=== PATIENT | female | born 1955 | race Hispanic/Latino ===

== ENCOUNTER 2017-10-10 14:58 | Outpatient (CLI) | payer BC | END 2017-10-10 14:59 | disposition home or self-care (01) | LOC: BICMAMMO 14:58 | PROVIDERS: ATTEND Physician Assistant Medical | DX: Z13.820 Encounter for screening for osteoporosis (principal); M85.88 Other specified disorders of bone density and structure, other site | CPT/HCPCS: 77080 ==

== ENCOUNTER 2019-01-24 10:33 | Outpatient (CLI) | payer BC ==
--- NOTE | 2019-01-24 11:23 | ULT ---
ULTRASOUND ABDOMEN LIMITED: (RIGHT UPPER QUADRANT) DATE: 01/24/2019. HISTORY: A 63-year-old female with epigastric pain. FINDINGS: Gallbladder: Almost entire gallbladder is obscured by strong acoustic shadowing. This most likely re presents gallbladder contracted around a large number of densely packed gallstones. The other possib ility is porcelain gallbladder. One of the images suggests the former. Porcelain gallbladder can be ruled in or rule out with CT of abdomen. Common duct: 5 mm. Liver: Diffusely slightly increased echogenicity, which could be normal, or could represent fatty semaj er. Pancreas: Mostly obscured by acoustic shadowing from overlying bowel gas. Right kidney: No hydronephrosis. IMPRESSION: Either the gallbladder is contracted around a large number of gallstones (cholelithiasis), or there i s porcelain gallbladder. The former is favored. OJSE Balderas POS: CET
== END 2019-01-24 10:34 | disposition home or self-care (01) ==
LOC: BICULT 10:33
PROVIDERS: ATTEND Family Medicine
DX: R10.13 Epigastric pain (principal); K80.20 Calculus of gallbladder without cholecystitis without obstruction
CPT/HCPCS: 76705

== ENCOUNTER 2019-03-05 13:12 | Outpatient (CLI) | payer BC ==
[2019-03-05 14:25] LABS: #Basophils 0.1 thou/uL (0.0-0.2); #Eosinphils 0.1 thou/uL (0.0-0.7); #Lymphocytes 2.4 thou/uL (1.20-3.40); #Monocytes 0.5 thou/uL (0.11-0.59); #Neutrophils 4.1 thou/uL (1.40-6.50); %Basophils 0.7 % (0.0-1.0); %Eosinophils 1.8 % (0.0-10.0); %Lymphocytes 34.1 % (21.0-51.0); %Monocytes 6.3 % (0.0-10.0); %Neutrophils 57.1 % (42.0-75.0); Mean Corpuscular HGB CONC 33.1 g/dL (32.0-36.0); Mean Corpuscular Hemoglobin 30.2 pg (27.0-31.0); Mean Corpuscular Volume 91.1 fL (78.0-98.0); Mean Platelet Volume 10.1 fL (7.4-10.4); Platelet Count 219 thou/uL (130-400); RBC Distribution Width 11.1 % (11.5-14.5); Red Blood Cell (RBC) Count 4.64 mill/uL (4.20-5.40); White Blood Cell (WBC) Count 7.2 thou/uL (4.8-10.8)
[2019-03-05 14:49] LABS: ALT (SGPT) 10 U/L (8-55); AST (SGOT) 16 U/L (5-34); Albumin 4.1 g/dL (3.4-4.8); Alkaline Phosphatase 66 U/L (40-110); Anion Gap 10 mmol/L (10-20); BUN (Urea Nitrogen) 9 mg/dL (9.8-20.1); Bilirubin, Direct 0.1 mg/dL (0.1-0.3); Bilirubin, Total 0.4 mg/dL (0.2-1.2); Calc. Creatinine Clearance 0 mL/min (70-130); Calcium 9.4 mg/dL (7.8-10.44); Carbon Dioxide 27 mmol/L (23-31); Chloride 105 mmol/L (98-107); Estimated GFR-MDRD 82; Globulin 3.3 g/dL (2.4-3.5); Glucose 156 mg/dL (80-115); Potassium 3.9 mmol/L (3.5-5.1); Protein, Total 7.4 g/dL (6.0-8.3); Sodium 138 mmol/L (136-145)
== END 2019-03-05 13:13 | disposition home or self-care (01) ==
LOC: LABBT 13:12
PROVIDERS: ATTEND Preventive Medicine Preventive Medicine/Occupational Environmental Medicine
DX: Z01.818 Encounter for other preprocedural examination (principal); K80.20 Calculus of gallbladder without cholecystitis without obstruction
CPT/HCPCS: 80053; 80076; 85025; 93005; 93010

== ENCOUNTER 2019-03-22 06:31 | Day surgery (SDC) | payer BC ==
[2019-03-05 13:25] VITALS: BMI 32.7
[2019-03-22] MEDS ORDERED: ceFOXitin 2 GM/50 ML Duplex BAG ONE (07:36)
[2019-03-22] MEDS ORDERED: Fentanyl 100 MCG/2 ML VIAL ONE ×2 (08:50→10:45)
[2019-03-22] MEDS ORDERED: Bupivacaine 0.25% HCL 30 ML VIAL ONE (09:48)
[2019-03-22] MEDS ORDERED: Lidocaine 1% w/Epinephrine 1:100K 20 ML VIAL ONE (09:48)
[2019-03-22] MEDS ORDERED: SUGAMMADEX SODIUM 200 MG/2 ML VIAL ONE (10:23)
[2019-03-22] MEDS ORDERED: PROPOFOL 200 MG/20 ML VIAL ONE (11:15)
[2019-03-22] MEDS ORDERED: Rocuronium Bromide 10 MG/ML (10ML VIAL) ONE (11:15)
[2019-03-22] MEDS ORDERED: Lidocaine 1% PF 5 ML VIAL ONE (11:15)
--- NOTE | 2019-03-22 12:50 | OP ---
DATE OF PROCEDURE: 03/22/2019 PREOPERATIVE DIAGNOSIS: Symptomatic cholelithiasis. PROCEDURE PERFORMED: Laparoscopic cholecystectomy. INDICATIONS: A 63-year-old female, who has been having episodic right upper quadrant pain. Ultrasound showed cholelithiasis. FINDINGS: She had a very large gallbladder filled with multiple large stones. The cystic duct was small caliber. DESCRIPTION OF PROCEDURE: After informed consent was obtained, the patient was taken to the operating room, given general endotracheal anesthesia, placed in the supine position. Abdomen was prepped and draped in usual fashion. Local anesthesia was infiltrated subcutaneously and deep and a supraumbilical incision was performed, subcu divided sharply. The fascia was grasped with 2 stay sutures of 0 Vicryl placed through each side of midline. Midline was incised. Digital palpation revealed no local adhesions. A blunt 12-mm trocar inserted. Pneumoperitoneum was created to a pressure of 15 mmHg. A 0-degree laparoscope inserted under direct vision. Three 5-mm ports were placed subcostally. The gallbladder was grasped and advanced superiorly. The peritoneum was dissected distally to expose the cystic duct and artery in critical view. The duct and artery were triply ligated with hemoclips and divided. The gallbladder was removed from its fossa utilizing electrocautery, removed from the abdomen through the umbilical port. Hemostasis was assured. Trocars and retractors removed. The fascia was closed with interrupted 2-0 Vicryl sutures. Skin closed with interrupted 4-0 Rapide. Dermabond applied. The patient tolerated the procedure well, transferred to Recovery in good condition. Sponge and needle count verified correct x2. Job ID: [id number]
== END 2019-03-22 14:12 | disposition home or self-care (01) ==
LOC: SDC 06:31
PROVIDERS: ATTEND Surgery
PROC: 0FT44ZZ Resection of Gallbladder, Percutaneous Endoscopic Approach (ICD-10-PCS; principal; 2019-03-22)
DX: K80.10 Calculus of gallbladder with chronic cholecystitis without obstruction (principal); I10 Essential (primary) hypertension; E11.9 Type 2 diabetes mellitus without complications; K21.9 Gastro-esophageal reflux disease without esophagitis; Z79.84 Long term (current) use of oral hypoglycemic drugs; Z79.899 Other long term (current) drug therapy
CPT/HCPCS: 88304; J0694; J2001; J2704; J3010; S0020

== ENCOUNTER 2019-10-08 09:58 | Outpatient (CLI) | payer MEDICARE, BC ==
--- NOTE | 2019-10-09 07:29 | RAD ---
EXAM: Chest PA and lateral: HISTORY: Right mid lower back pain. Posterior rib pain. COMPARISON: None FINDINGS: Heart: Normal cardiac silhouette Aorta: Unremarkable Pulmonary vessels: Normal Costophrenic angles: Costophrenic angles are clear. Lungs: No consolidation or masses. Pneumothorax: No pneumothorax Osseous structures: No osseous abnormalities IMPRESSION: No acute cardiopulmonary process.
--- NOTE | 2019-10-09 07:34 | RAD ---
Exam: 3 views thoracic spine HISTORY: Dorsalgia. FINDINGS: AP, lateral and swimmer's view of the thoracic spine demonstrate preserved vertebral body h eights. No fractures or malalignment. Mild loss of disc space height and osteophyte formation the mid thoracic spine. IMPRESSION: No radiographic evidence of fracture or malalignment.
== END 2019-10-08 09:59 | disposition home or self-care (01) ==
LOC: BICRAD 09:58
PROVIDERS: ATTEND Family Medicine
DX: M54.6 Pain in thoracic spine (principal); R07.89 Other chest pain
CPT/HCPCS: 71046; 72072

== ENCOUNTER 2019-11-13 14:24 | Outpatient (CLI) | payer MEDICARE, BC ==
[2019-11-13 14:53] LABS: Estimated GFR-MDRD - POC Greater than 90
--- NOTE | 2019-11-13 15:11 | CT ---
CT abdomen with IV and oral contrast HISTORY: Upper abdomen pain. FINDINGS: The lung bases are clear. Postoperative changes of the stomach and GE junction with small hiatal hernia apparent. The gallbladd er surgically absent. The liver, spleen, kidneys, adrenal glands, and pancreas otherwise have a normal CT appearance. There is calcification throughout the arterial structures. Degenerative changes lumbar spine. The pelvis was not imaged. IMPRESSION : No abnormalities are demonstrated to explain the patient's symptoms. Small hiatal hernia. Appearance of prior bariatric surgery. Atherosclerosis.
[2019-11-13] MEDS ORDERED: Iopamidol 370 76% 100 ML VIAL ONE (15:24)
== END 2019-11-13 14:25 | disposition home or self-care (01) ==
LOC: BICCT 14:24
PROVIDERS: ATTEND Family Medicine
DX: K43.2 Incisional hernia without obstruction or gangrene (principal); K44.9 Diaphragmatic hernia without obstruction or gangrene; I70.90 Unspecified atherosclerosis; Z98.84 Bariatric surgery status
CPT/HCPCS: 74160; 82565; Q9967

== ENCOUNTER 2020-02-28 14:15 | Outpatient (CLI) | payer MEDICARE, BC ==
--- NOTE | 2020-02-28 15:20 | BD ---
Exam: DEXA Bone Density 02/28/20 INDICATION: Asymptomatic menopause, osteoporosis screening. FINDINGS: Lumbar Spine: BMD (g/cm2) T-SCORE Z-SCORE L1 0.864 -1.1 0.4 L2 0.915 -1.0 0.7 L3 0.869 -2.0 -0.1 L4 0.855 -1.9 0.8 L1-L4 0.874 -1.6 0.2 Left Femoral Neck: 0.674 -1.6 0.0 Left Total Femur: 1.005 0.5 1.8 Impression: Based on WHO criteria, patient's bone mineral density is osteopenic. The patient is at moderate risk for fracture. POS: BH
== END 2020-02-28 14:16 | disposition home or self-care (01) ==
LOC: BICMAMMO 14:15
PROVIDERS: ATTEND Family Medicine
DX: Z00.00 Encounter for general adult medical examination without abnormal findings (principal); Z13.820 Encounter for screening for osteoporosis; M85.89 Other specified disorders of bone density and structure, multiple sites; Z78.0 Asymptomatic menopausal state
CPT/HCPCS: 77080

== ENCOUNTER 2021-02-09 08:16 | Outpatient (CLI) | payer MEDICARE, BC | END 2021-02-09 08:17 | disposition home or self-care (01) | LOC: BICMAMMO 08:16 | PROVIDERS: ATTEND Family Medicine | DX: Z12.31 Encounter for screening mammogram for malignant neoplasm of breast (principal); Z80.3 Family history of malignant neoplasm of breast; Z91.89 Other specified personal risk factors, not elsewhere classified | CPT/HCPCS: 77063; 77067 ==

== ENCOUNTER 2021-03-25 15:56 | Outpatient (CLI) | payer MEDICARE, BC ==
[2021-03-25 17:22] LABS: #Eosinphils 0.1 10x3/uL (0.0-0.5); #Monocytes 0.4 10x3/uL (0.0-1.1); #Neutrophils 3.5 10x3/uL (1.5-8.4); %Basophils 0.7 % (0.0-2.0); %Lymphocytes 33.7 % (18.0-47.0); %Monocytes 5.9 % (0.0-10.0); %Neutrophils 57.5 % (40.0-75.0); Hemoglobin 12.9 g/dL (12.0-15.5); Mean Corpuscular HGB CONC 31.5 g/dL (32.0-36.0); Mean Corpuscular Hemoglobin 28.7 pg (27.0-33.0); Mean Corpuscular Volume 91.1 fl (81.6-98.3); Mean Platelet Volume 11.8 fl (7.4-10.4); Platelet Count 264 10x3/uL (150-450); RBC Distribution Width 13.1 % (11.5-14.5); Red Blood Cell (RBC) Count 4.49 10x6/uL (3.90-5.03); White Blood Cell (WBC) Count 6.1 10x3/uL (3.5-10.5)
[2021-03-25 17:28] LABS: ALT (SGPT) 11 U/L (8-55); AST (SGOT) 18 U/L (5-34); Alkaline Phosphatase 65 U/L (40-110); Anion Gap 12 mmol/L (10-20); BUN (Urea Nitrogen) 10 mg/dL (9.8-20.1); Bilirubin, Total 0.2 mg/dL (0.2-1.2); Calc. Creatinine Clearance 0 mL/min (70-130); Calcium 9.5 mg/dL (7.8-10.44); Carbon Dioxide 28 mmol/L (23-31); Chloride 106 mmol/L (98-107); Globulin 3.3 g/dL (2.4-3.5); Glucose 140 mg/dL (80-115); Potassium 4.1 mmol/L (3.5-5.1); Protein, Total 7.3 g/dL (5.8-8.1); Sodium 142 mmol/L (136-145)
[2021-03-26 11:22] LABS: SARS-CoV-2 PCR by NAA Not Detected (NotDetected)
== END 2021-03-25 15:57 | disposition home or self-care (01) ==
LOC: LABBT 15:56
PROVIDERS: ATTEND Internal Medicine Cardiovascular Disease
DX: Z01.812 Encounter for preprocedural laboratory examination (principal); Z20.822 Contact with and (suspected) exposure to COVID-19
CPT/HCPCS: 80053; 85025; U0003; U0005

== ENCOUNTER 2021-03-29 06:56 | Day surgery (SDC) | payer MEDICARE, BC ==
[2021-03-26 09:50] VITALS: BMI 30.4
[2021-03-29 08:22] LABS: Cardiac Risk 2.4 (Less than 4.5)
[2021-03-29] MEDS ORDERED: Fentanyl 100 MCG/2 ML VIAL ONE (09:54)
[2021-03-29] MEDS ORDERED: Midazolam HCl 2 mg/2 ml Vial ONE (09:55)
[2021-03-29] MEDS ORDERED: Iopamidol 370 76% 100 ML VIAL ONE (11:56)
== END 2021-03-29 13:08 | disposition home or self-care (01) ==
LOC: CCL 06:56
PROVIDERS: ATTEND Internal Medicine Cardiovascular Disease
PROC: 4A023N7 Measurement of Cardiac Sampling and Pressure, Left Heart, Percutaneous Approach (ICD-10-PCS; principal; 2021-03-29)
PROC: B2111ZZ Fluoroscopy of Multiple Coronary Arteries using Low Osmolar Contrast (ICD-10-PCS; 2021-03-29)
DX: R94.31 Abnormal electrocardiogram [ECG] [EKG] (principal); I25.10 Atherosclerotic heart disease of native coronary artery without angina pectoris; I10 Essential (primary) hypertension; E11.9 Type 2 diabetes mellitus without complications; K21.9 Gastro-esophageal reflux disease without esophagitis; M81.0 Age-related osteoporosis without current pathological fracture; Z86.16 Personal history of COVID-19; Z79.810 Long term (current) use of selective estrogen receptor modulators (SERMs); E55.9 Vitamin D deficiency, unspecified; E66.01 Morbid (severe) obesity due to excess calories; Z68.30 Body mass index [BMI] 30.0-30.9, adult; Z79.84 Long term (current) use of oral hypoglycemic drugs; Z79.899 Other long term (current) drug therapy; Z98.84 Bariatric surgery status
CPT/HCPCS: 80061; 93458; 99152; J2250; J3010; Q9967

== ENCOUNTER 2021-04-05 07:53 | Outpatient (CLI) | payer MEDICARE, BC ==
[2021-04-05 09:20] LABS: Hemoglobin 12.8 g/dL (12.0-15.5); Mean Corpuscular HGB CONC 31.6 g/dL (32.0-36.0); Mean Corpuscular Hemoglobin 28.4 pg (27.0-33.0); Mean Corpuscular Volume 89.8 fl (81.6-98.3); Mean Platelet Volume 11.4 fl (7.4-10.4); Platelet Count 239 10x3/uL (150-450); RBC Distribution Width 13.1 % (11.5-14.5); Red Blood Cell (RBC) Count 4.51 10x6/uL (3.90-5.03); White Blood Cell (WBC) Count 5.6 10x3/uL (3.5-10.5)
[2021-04-05 09:33] LABS: Anion Gap 9 mmol/L (10-20); BUN (Urea Nitrogen) 7 mg/dL (9.8-20.1); Calc. Creatinine Clearance 0 mL/min (70-130); Calcium 9.1 mg/dL (7.8-10.44); Carbon Dioxide 29 mmol/L (23-31); Chloride 107 mmol/L (98-107); Glucose 88 mg/dL (80-115); Potassium 4.4 mmol/L (3.5-5.1); Sodium 141 mmol/L (136-145)
[2021-04-05 17:41] LABS: SARS-CoV-2 PCR by NAA Not Detected (NotDetected)
== END 2021-04-05 07:54 | disposition home or self-care (01) ==
LOC: LABBT 07:53
PROVIDERS: ATTEND Thoracic Surgery (Cardiothoracic Vascular Surgery)
DX: Z01.812 Encounter for preprocedural laboratory examination (principal); Z20.822 Contact with and (suspected) exposure to COVID-19
CPT/HCPCS: 80048; 85027; 86850; 86900; 86901; U0003; U0005

== ENCOUNTER 2021-04-05 09:45 | Inpatient (IN) | payer MEDICARE, BC ==
[2021-04-05 09:20] LABS: Hemoglobin 12.8 g/dL (12.0-15.5); Mean Corpuscular HGB CONC 31.6 g/dL (32.0-36.0); Mean Corpuscular Hemoglobin 28.4 pg (27.0-33.0); Mean Corpuscular Volume 89.8 fl (81.6-98.3); Mean Platelet Volume 11.4 fl (7.4-10.4); Platelet Count 239 10x3/uL (150-450); RBC Distribution Width 13.1 % (11.5-14.5); Red Blood Cell (RBC) Count 4.51 10x6/uL (3.90-5.03); White Blood Cell (WBC) Count 5.6 10x3/uL (3.5-10.5)
[2021-04-05 09:33] LABS: Anion Gap 9 mmol/L (10-20); BUN (Urea Nitrogen) 7 mg/dL (9.8-20.1); Calc. Creatinine Clearance 0 mL/min (70-130); Calcium 9.1 mg/dL (7.8-10.44); Carbon Dioxide 29 mmol/L (23-31); Chloride 107 mmol/L (98-107); Glucose 88 mg/dL (80-115); Potassium 4.4 mmol/L (3.5-5.1); Sodium 141 mmol/L (136-145)
[2021-04-06 10:57] VITALS: BMI 30.2
[2021-04-08] MEDS ORDERED: ceFAZolin 2 GM/DEX 5% 100 ML BAG ONE (06:14)
[2021-04-08] MEDS ORDERED: Albumin 5% 0 ML ONE (06:21)
[2021-04-08] MEDS ORDERED: Sodium Chloride 0.9% 30 ML ONE (06:56)
[2021-04-08] MEDS ORDERED: Midazolam HCl 5 mg/5 ml Vial ONE (06:58)
[2021-04-08] MEDS ORDERED: Fentanyl 250 MCG/5 ML VIAL ONE (06:58)
[2021-04-08] MEDS ORDERED: Dexmedetomidine 200 MCG/2 ML VIAL ONE ×2 (06:58→07:06)
[2021-04-08] MEDS ORDERED: Heparin 10,000 UNITS/1 ML VIAL 30,000 UNITS in Sodium Chloride 0.9% 1,000 ML FS SCH (07:00)
[2021-04-08] MEDS ORDERED: Midazolam HCl 2 mg/2 ml Vial ONE (07:20)
[2021-04-08] MEDS ORDERED: Vecuronium 10 MG VIAL ONE (07:50)
[2021-04-08] MEDS ORDERED: Sodium Bicarb 50 MEQ/50 ML Abboject 8.4% SYRINGE ONE (07:50)
[2021-04-08] MEDS ORDERED: Dexamethasone 20 MG/5 ML VIAL ONE (07:50)
[2021-04-08] MEDS ORDERED: Protamine Sulfate 250 MG/25 ML VIAL ONE (07:50)
[2021-04-08] MEDS ORDERED: Heparin 5,000 UNITS/ML VIAL ONE (07:50)
[2021-04-08] MEDS ORDERED: Calcium Chloride 1 GM/10 ML Abboject SYRINGE ONE (07:50)
[2021-04-08] MEDS ORDERED: Thrombin 5000 UNITS/5 ML VIAL ONE (07:50)
[2021-04-08] MEDS ORDERED: Lidocaine 1% PF 5 ML VIAL ONE (07:50)
[2021-04-08] MEDS ORDERED: Glycopyrrolate 0.2 MG/ML 5 ML SYRINGE ONE (07:50)
[2021-04-08] MEDS ORDERED: Mannitol 12.5 GM/50 ML ONE (07:50)
[2021-04-08] MEDS ORDERED: Potassium Chloride 60 MEQ/30 ML VIAL ONE (07:50)
[2021-04-08] MEDS ORDERED: Nitroglycerin 50 MG/250 ML BOT ONE (07:50)
[2021-04-08] MEDS ORDERED: Papaverine 60 MG/2 ML VIAL ONE (07:50)
[2021-04-08] MEDS ORDERED: Cardioplegic Soln 1,000 ML BAG ONE (07:50)
[2021-04-08] MEDS ORDERED: PROPOFOL 200 MG/20 ML VIAL ONE (07:50)
[2021-04-08] MEDS ORDERED: Ondansetron PF 4 MG/2 ML Vial ONE (07:50)
[2021-04-08] MEDS ORDERED: Heparin 30,000 units/30 ml VIAL ONE (07:50)
[2021-04-08] MEDS ORDERED: Aminocaproic Acid 5 GM/20 ML VIAL ONE (07:50)
[2021-04-08] MEDS ORDERED: Magnesium Sulfate 1 GM/2 ML VIAL ONE (07:50)
[2021-04-08] MEDS ORDERED: Lidocaine 2% PF 100 mg/5 ml Syringe ONE (07:50)
[2021-04-08] MEDS ORDERED: Norepinephrine 4 MG/4 ML VIAL ONE (07:50)
[2021-04-08] MEDS ORDERED: PHENYLEPHRINE-NS 100 MCG/ML 10 ML SYRINGE ONE (09:56)
[2021-04-08] MEDS ORDERED: Insulin Regular 300 UNITS/3 ML VIAL ONE (10:02)
[2021-04-08] MEDS ORDERED: Hetastarch 6% 500 ML 500 ML IVPB PRN (11:41)
[2021-04-08] MEDS ORDERED: Guaifenesin DM 100-10/5 ML UDCUP PO PRN (11:41)
[2021-04-08] MEDS ORDERED: niCARdipine 25 MG in Sodium Chloride 0.9% 250 ML 240 ML IVPB PRN (11:41)
[2021-04-08] MEDS ORDERED: Mag-Al 1200 mg/1200 mg/30 ML UDCUP PO PRN (11:41)
[2021-04-08] MEDS ORDERED: Ondansetron PF 4 MG/2 ML Vial IVP PRN (11:41)
[2021-04-08] MEDS ORDERED: Norepinephrine 8 MG/0.9% NS 250 ML IVPB PRN (11:41)
[2021-04-08] MEDS ORDERED: Post-Op Insulin Drip Protocol IVPB ONE (11:41)
[2021-04-08] MEDS ORDERED: Potassium Chloride 20 MEQ/100 ML PREMIX BAG IVPB PRN (11:41)
[2021-04-08] MEDS ORDERED: DOPamine 400 MG/D5W 250 ML 250 ML IVPB PRN (11:41)
[2021-04-08] MEDS ORDERED: Fentanyl 100 MCG/2 ML VIAL SLOW IVP PRN (11:41)
[2021-04-08] MEDS ORDERED: Promethazine HCl 25 MG/ML VIAL IM PRN (11:41)
[2021-04-08] MEDS ORDERED: Bisacodyl 5 MG TAB PO PRN (11:41)
[2021-04-08] MEDS ORDERED: Acetaminophen 325 MG TAB PO PRN (11:41)
[2021-04-08] MEDS ORDERED: Nitroglycerin 50 MG/250 ML BOT 250 ML IVPB PRN (11:41)
[2021-04-08] MEDS ORDERED: Bisacodyl 10 MG SUPP PR PRN (11:41)
[2021-04-08] MEDS ORDERED: hydrALAZINE 20 MG/ML VIAL SLOW IVP PRN (11:41)
[2021-04-08 12:08] LABS: #Eosinphils 0.1 thou/uL (0.0-0.7); #Lymphocytes 0.9 thou/uL (1.20-3.40); #Monocytes 0.7 thou/uL (0.11-0.59); #Neutrophils 13.5 thou/uL (1.40-6.50); %Basophils 0.1 % (0.0-1.0); %Eosinophils 0.4 % (0.0-10.0); %Monocytes 4.3 % (0.0-10.0); %Neutrophils 89.3 % (42.0-75.0); Hemoglobin 11.3 g/dL (12.0-16.0); Mean Corpuscular HGB CONC 32.5 g/dL (32.0-36.0); Mean Corpuscular Hemoglobin 29.9 pg (27.0-31.0); Mean Platelet Volume 8.8 fL (7.4-10.4); Platelet Count 149 thou/uL (130-400); RBC Distribution Width 12.2 % (11.5-14.5); Red Blood Cell (RBC) Count 3.77 mill/uL (4.20-5.40); White Blood Cell (WBC) Count 15.1 thou/uL (4.8-10.8)
[2021-04-08] MEDS ORDERED: Albumin 5% 250 ML ONE (12:11)
[2021-04-08] MEDS ORDERED: Nitroglycerin 50 MG/250 ML BOT 250 ML ONE (12:13)
[2021-04-08 12:20] LABS: INR-International Normal Ratio 1.4; PTT 32.7 sec (22.9-36.1); Prothrombin Time 16.9 sec (12.0-14.7)
[2021-04-08 12:25] LABS: Anion Gap 7 mmol/L (10-20); BUN (Urea Nitrogen) 7 mg/dL (9.8-20.1); Calc. Creatinine Clearance 119 mL/min (70-130); Calcium 7.3 mg/dL (7.8-10.44); Carbon Dioxide 23 mmol/L (23-31); Chloride 113 mmol/L (98-107); Glucose 144 mg/dL (80-115); Sodium 139 mmol/L (136-145)
[2021-04-08] MEDS ORDERED: Morphine 4 MG/ML VIAL SLOW IVP PRN (12:32)
[2021-04-08] MEDS: Lactated Ringer's 1,000 ML IV SCH (12:39)
[2021-04-08] MEDS ORDERED: Dextrose 5% in Water 1,000 ML IV PRN (12:45)
[2021-04-08] MEDS: Insulin Regular 300 UNITS/3 ML VIAL SC PRN ×2 (12:45→15:54)
[2021-04-08] MEDS ORDERED: HUMULIN R 100 UNITS in Sodium Chloride 0.9% 100 ML IVPB SCH (12:45)
[2021-04-08] MEDS ORDERED: Lantus 1000 UNITS/10 ML VIAL SC PRN (12:45)
[2021-04-08] MEDS ORDERED: Dextrose 50% Abboject 50 ML SYRINGE SLOW IVP PRN (12:45)
[2021-04-08] MEDS: HYDROcodone/Acetaminophen 5/325 mg Tablet PO PRN (14:37)
[2021-04-08] MEDS: Fentanyl 100 MCG/2 ML VIAL SLOW IVP PRN ×2 (15:41→21:08)
[2021-04-08] MEDS: ceFAZolin Sodium/D5W 2 GM in Premix Bag 1 BAG IVPB SCH (15:44)
[2021-04-08 17:18] LABS: Hemoglobin 8.6 g/dL (12.0-16.0)
[2021-04-08] MEDS ORDERED: Famotidine/PF 20 mg/2ml Vial SLOW IVP SCH (21:00)
[2021-04-08] MEDS: Atorvastatin Calcium 20 MG TAB PO SCH (21:11)
[2021-04-09] MEDS: Fentanyl 100 MCG/2 ML VIAL SLOW IVP PRN (00:38)
[2021-04-09] MEDS: ceFAZolin Sodium/D5W 2 GM in Premix Bag 1 BAG IVPB SCH ×2 (00:59→09:04)
[2021-04-09] MEDS: Lactated Ringer's 1,000 ML IV SCH (01:23)
[2021-04-09] MEDS: HYDROcodone/Acetaminophen 5/325 mg Tablet PO PRN ×5 (01:41→20:51)
[2021-04-09 04:45] LABS: Anion Gap 10 mmol/L (10-20); BUN (Urea Nitrogen) 6 mg/dL (9.8-20.1); Calc. Creatinine Clearance 112 mL/min (70-130); Calcium 7.8 mg/dL (7.8-10.44); Carbon Dioxide 20 mmol/L (23-31); Chloride 111 mmol/L (98-107); Glucose 113 mg/dL (80-115); Potassium 3.7 mmol/L (3.5-5.1); Sodium 137 mmol/L (136-145)
[2021-04-09 04:48] LABS: #Lymphocytes 0.8 thou/uL (1.20-3.40); #Monocytes 0.7 thou/uL (0.11-0.59); #Neutrophils 6.5 thou/uL (1.40-6.50); %Basophils 0.5 % (0.0-1.0); %Eosinophils 0.1 % (0.0-10.0); %Lymphocytes 9.8 % (21.0-51.0); %Monocytes 8.5 % (0.0-10.0); %Neutrophils 81.1 % (42.0-75.0); Hemoglobin 7.7 g/dL (12.0-16.0); Mean Corpuscular HGB CONC 33.4 g/dL (32.0-36.0); Mean Corpuscular Hemoglobin 30.5 pg (27.0-31.0); Mean Corpuscular Volume 91.5 fL (78.0-98.0); Mean Platelet Volume 8.9 fL (7.4-10.4); Platelet Count 127 thou/uL (130-400); RBC Distribution Width 12.1 % (11.5-14.5); Red Blood Cell (RBC) Count 2.52 mill/uL (4.20-5.40)
[2021-04-09] MEDS: Polyethylene Glycol 3350 17 GM Packet PO SCH (07:45)
[2021-04-09] MEDS: Aspirin 325 MG TAB PO SCH (07:45)
[2021-04-09] MEDS: Insulin Regular 300 UNITS/3 ML VIAL SC PRN (16:33)
[2021-04-09] MEDS: Atorvastatin Calcium 20 MG TAB PO SCH (20:50)
[2021-04-10] MEDS: HYDROcodone/Acetaminophen 5/325 mg Tablet PO PRN ×3 (04:25→18:20)
[2021-04-10 04:46] LABS: #Eosinphils 0.1 thou/uL (0.0-0.7); #Monocytes 0.8 thou/uL (0.11-0.59); #Neutrophils 6.1 thou/uL (1.40-6.50); %Basophils 0.3 % (0.0-1.0); %Eosinophils 0.7 % (0.0-10.0); %Lymphocytes 12.9 % (21.0-51.0); %Monocytes 10.3 % (0.0-10.0); %Neutrophils 75.9 % (42.0-75.0); Hemoglobin 9.8 g/dL (12.0-16.0); Mean Corpuscular Hemoglobin 30.1 pg (27.0-31.0); Mean Corpuscular Volume 91.2 fL (78.0-98.0); Mean Platelet Volume 8.9 fL (7.4-10.4); Platelet Count 125 thou/uL (130-400); RBC Distribution Width 12.4 % (11.5-14.5); Red Blood Cell (RBC) Count 3.25 mill/uL (4.20-5.40); White Blood Cell (WBC) Count 8.1 thou/uL (4.8-10.8)
[2021-04-10 05:08] LABS: Anion Gap 9 mmol/L (10-20); BUN (Urea Nitrogen) 7 mg/dL (9.8-20.1); Calc. Creatinine Clearance 122 mL/min (70-130); Calcium 8.6 mg/dL (7.8-10.44); Carbon Dioxide 27 mmol/L (23-31); Chloride 104 mmol/L (98-107); Glucose 99 mg/dL (80-115); Potassium 4.1 mmol/L (3.5-5.1); Sodium 136 mmol/L (136-145)
[2021-04-10] MEDS: Aspirin 325 MG TAB PO SCH (09:02)
[2021-04-10] MEDS: Polyethylene Glycol 3350 17 GM Packet PO SCH (09:02)
[2021-04-10] MEDS: Insulin Regular 300 UNITS/3 ML VIAL SC PRN (11:26)
[2021-04-10] MEDS ORDERED: Bisacodyl 10 MG SUPP PR PRN (11:29)
[2021-04-10] MEDS ORDERED: Bisacodyl 5 MG TAB PO PRN (11:29)
[2021-04-10] MEDS ORDERED: Mineral Oil ENEMA PR PRN (11:29)
[2021-04-10] MEDS ORDERED: Zolpidem Tartrate 5 MG TAB PO PRN (11:29)
[2021-04-10] MEDS ORDERED: Mag-Al 1200 mg/1200 mg/30 ML UDCUP PO PRN (11:29)
[2021-04-10] MEDS ORDERED: Guaifenesin DM 100-10/5 ML UDCUP PO PRN (11:29)
[2021-04-10] MEDS ORDERED: Nitroglycerin 0.4 MG TAB (25 Tab Bottle) SL PRN (11:29)
[2021-04-10] MEDS ORDERED: Furosemide 20 MG TAB PO SCH (12:00)
[2021-04-10] MEDS: Atorvastatin Calcium 20 MG TAB PO SCH (21:26)
[2021-04-11] MEDS: HYDROcodone/Acetaminophen 5/325 mg Tablet PO PRN ×3 (03:40→17:41)
[2021-04-11 08:27] LABS: Glucose 105 mg/dL (80-115)
[2021-04-11] MEDS: Furosemide 20 MG TAB PO SCH (08:58)
[2021-04-11] MEDS: Aspirin 325 mg Enteric Coated Tablet PO SCH (08:58)
[2021-04-11] MEDS: Polyethylene Glycol 3350 17 GM Packet PO SCH (08:58)
[2021-04-11] MEDS: Potassium Chloride 10 MEQ TAB PO SCH (08:58)
[2021-04-11] MEDS: Metoprolol Tartrate 25 MG TAB PO SCH ×2 (08:59→21:07)
[2021-04-11] MEDS: Insulin Regular 300 UNITS/3 ML VIAL SC PRN (17:41)
[2021-04-11] MEDS: Atorvastatin Calcium 20 MG TAB PO SCH (20:54)
[2021-04-12] MEDS: HYDROcodone/Acetaminophen 5/325 mg Tablet PO PRN ×5 (00:02→23:14)
[2021-04-12] MEDS: diphenhydrAMINE 25 MG CAP PO PRN ×2 (00:04→17:26)
[2021-04-12] MEDS: Polyethylene Glycol 3350 17 GM Packet PO SCH (08:31)
[2021-04-12] MEDS: Furosemide 20 MG TAB PO SCH (08:31)
[2021-04-12] MEDS: Aspirin 325 mg Enteric Coated Tablet PO SCH (08:31)
[2021-04-12] MEDS: Metoprolol Tartrate 25 MG TAB PO SCH ×2 (08:31→20:54)
[2021-04-12] MEDS: Potassium Chloride 10 MEQ TAB PO SCH (08:31)
[2021-04-12] MEDS: Insulin Regular 300 UNITS/3 ML VIAL SC PRN ×3 (11:32→23:16)
[2021-04-12] MEDS: Atorvastatin Calcium 20 MG TAB PO SCH (20:54)
[2021-04-13] MEDS ORDERED: Aspirin 325 mg Enteric Coated Tablet PO SCH (06:24)
[2021-04-13] MEDS ORDERED: Furosemide 20 MG TAB PO SCH (06:24)
[2021-04-13] MEDS: Polyethylene Glycol 3350 17 GM Packet PO SCH (08:37)
[2021-04-13] MEDS: Metoprolol Tartrate 25 MG TAB PO SCH ×2 (08:37→19:04)
[2021-04-13] MEDS: Aspirin 81 mg Enteric Coated Tablet PO SCH (08:37)
[2021-04-13] MEDS: Furosemide 40 MG TAB PO SCH (08:37)
[2021-04-13] MEDS: Potassium Chloride 10 MEQ TAB PO SCH (08:37)
[2021-04-13] MEDS: Insulin Regular 300 UNITS/3 ML VIAL SC PRN ×2 (11:40→17:34)
[2021-04-13 13:20] LABS: Glucose 171 mg/dL (80-115)
[2021-04-13] MEDS: HYDROcodone/Acetaminophen 5/325 mg Tablet PO PRN (19:04)
[2021-04-13] MEDS: Atorvastatin Calcium 20 MG TAB PO SCH (19:04)
[2021-04-14] MEDS: HYDROcodone/Acetaminophen 5/325 mg Tablet PO PRN (03:30)
[2021-04-14] MEDS: Polyethylene Glycol 3350 17 GM Packet PO SCH (09:09)
[2021-04-14] MEDS: Furosemide 40 MG TAB PO SCH (09:09)
[2021-04-14] MEDS: Metoprolol Tartrate 25 MG TAB PO SCH (09:09)
[2021-04-14] MEDS: Aspirin 81 mg Enteric Coated Tablet PO SCH (09:09)
[2021-04-14] MEDS: Potassium Chloride 10 MEQ TAB PO SCH (09:09)
[2021-04-14 09:12] VITALS: BP 122/68; TEMP 97.7
== END 2021-04-14 11:45 | disposition home or self-care (01) | DRG 236 ==
LOC: SURG A 04-08 05:50 → CCU 04-08 10:56 → 2NO 04-10 16:17
PROVIDERS: ADMIT Thoracic Surgery (Cardiothoracic Vascular Surgery); ATTEND Thoracic Surgery (Cardiothoracic Vascular Surgery)
PROC: 021109W Bypass Coronary Artery, Two Arteries from Aorta with Autologous Venous Tissue, Open Approach (ICD-10-PCS; principal; 2021-04-08)
PROC: 02110Z9 Bypass Coronary Artery, Two Arteries from Left Internal Mammary, Open Approach (ICD-10-PCS; 2021-04-08)
PROC: 06BQ0ZZ Excision of Left Saphenous Vein, Open Approach (ICD-10-PCS; 2021-04-08)
PROC: 5A1221Z Performance of Cardiac Output, Continuous (ICD-10-PCS; 2021-04-08)
PROC: 30233N1 Transfusion of Nonautologous Red Blood Cells into Peripheral Vein, Percutaneous Approach (ICD-10-PCS; 2021-04-08)
DX: I25.10 Atherosclerotic heart disease of native coronary artery without angina pectoris (principal); Z28.21 Immunization not carried out because of patient refusal; I10 Essential (primary) hypertension; E78.5 Hyperlipidemia, unspecified; E11.9 Type 2 diabetes mellitus without complications; Z98.49 Cataract extraction status, unspecified eye; Z98.84 Bariatric surgery status; Z98.51 Tubal ligation status; Z79.899 Other long term (current) drug therapy; Z79.82 Long term (current) use of aspirin; Z79.84 Long term (current) use of oral hypoglycemic drugs
CPT/HCPCS: 36415; 36416; 36430; 71045; 80048; 82947; 85025; 85027; 85610; 85730; 86850; 86900; 86901; 93005; 93010; 93798; C1776; J1100; J1642; J1644; J1815; J2001; J2150; J2250; J2405; J2440; J2704; J2720; J3010; J3370; J3475; J3480; J7120; P9016; P9045; S0017; S0028

== ENCOUNTER 2021-04-16 12:05 | Emergency (ER) | payer MEDICARE, BC ==
[2021-04-16 13:01] LABS: #Eosinphils 0.2 thou/uL (0.0-0.7); #Lymphocytes 1.2 thou/uL (1.20-3.40); #Monocytes 0.5 thou/uL (0.11-0.59); #Neutrophils 4.3 thou/uL (1.40-6.50); %Basophils 0.3 % (0.0-1.0); %Eosinophils 2.8 % (0.0-10.0); %Lymphocytes 18.7 % (21.0-51.0); %Monocytes 8.5 % (0.0-10.0); %Neutrophils 69.7 % (42.0-75.0); Hemoglobin 10.4 g/dL (12.0-16.0); Mean Corpuscular HGB CONC 33.2 g/dL (32.0-36.0); Mean Corpuscular Hemoglobin 30.9 pg (27.0-31.0); Platelet Count 230 thou/uL (130-400); RBC Distribution Width 13.4 % (11.5-14.5); Red Blood Cell (RBC) Count 3.35 mill/uL (4.20-5.40); White Blood Cell (WBC) Count 6.2 thou/uL (4.8-10.8)
[2021-04-16 14:11] LABS: ALT (SGPT) 8 U/L (8-55); AST (SGOT) 14 U/L (5-34); Albumin 3.2 g/dL (3.4-4.8); Alkaline Phosphatase 40 U/L (40-110); Anion Gap 11 mmol/L (10-20); BUN (Urea Nitrogen) 15 mg/dL (9.8-20.1); Bilirubin, Total 0.7 mg/dL (0.2-1.2); CK (CPK) 27 U/L (29-168); Calc. Creatinine Clearance 0 mL/min (70-130); Calcium 8.7 mg/dL (7.8-10.44); Carbon Dioxide 26 mmol/L (23-31); Chloride 105 mmol/L (98-107); Globulin 2.7 g/dL (2.4-3.5); Glucose 120 mg/dL (80-115); Lipase 7 U/L (8-78); Potassium 4.2 mmol/L (3.5-5.1); Protein, Total 5.9 g/dL (5.8-8.1); Sodium 138 mmol/L (136-145)
[2021-04-16 20:45] LABS: SARS-CoV-2 PCR by NAA Not Detected (NotDetected)
== END 2021-04-16 14:47 | disposition home or self-care (01) ==
LOC: ERS 12:05
DX: L03.116 Cellulitis of left lower limb (principal); R42 Dizziness and giddiness; I10 Essential (primary) hypertension; E78.5 Hyperlipidemia, unspecified; E11.9 Type 2 diabetes mellitus without complications; Z87.891 Personal history of nicotine dependence; Z20.822 Contact with and (suspected) exposure to COVID-19; Z79.82 Long term (current) use of aspirin; Z79.84 Long term (current) use of oral hypoglycemic drugs; Z79.899 Other long term (current) drug therapy; M79.605 Pain in left leg
CPT/HCPCS: 71045; 80053; 82550; 83690; 83880; 84484; 85025; 93005; 93971; 99285; U0003; U0005; 36415

== ENCOUNTER 2022-02-14 08:34 | Outpatient (CLI) | payer MEDICARE, BC | END 2022-02-14 08:35 | disposition home or self-care (01) | LOC: BICMAMMO 08:34 | PROVIDERS: ATTEND Family Medicine | DX: Z12.31 Encounter for screening mammogram for malignant neoplasm of breast (principal); Z91.89 Other specified personal risk factors, not elsewhere classified; Z80.3 Family history of malignant neoplasm of breast | CPT/HCPCS: 77063; 77067 ==

== ENCOUNTER 2022-05-16 13:54 | Outpatient (CLI) | payer MEDICARE, BC | END 2022-05-16 13:55 | disposition home or self-care (01) | LOC: BICMAMMO 13:54 | PROVIDERS: ATTEND Family Medicine | DX: Z13.820 Encounter for screening for osteoporosis (principal); N95.9 Unspecified menopausal and perimenopausal disorder; M85.89 Other specified disorders of bone density and structure, multiple sites | CPT/HCPCS: 77080 ==

== ENCOUNTER 2023-01-11 13:49 | Outpatient (CLI) | payer MEDICARE, BC | END 2023-01-11 13:50 | disposition home or self-care (01) | LOC: ULT 13:49 | PROVIDERS: ATTEND Specialist | DX: E04.2 Nontoxic multinodular goiter (principal) | CPT/HCPCS: 76536 ==

== ENCOUNTER 2023-03-09 12:40 | Outpatient (CLI) | payer MEDICARE, BC | END 2023-03-09 12:41 | disposition home or self-care (01) | LOC: BICMAMMO 12:40 | PROVIDERS: ATTEND Family Medicine | DX: Z12.31 Encounter for screening mammogram for malignant neoplasm of breast (principal); Z80.3 Family history of malignant neoplasm of breast | CPT/HCPCS: 77063; 77067 ==

== ENCOUNTER 2024-02-05 11:39 | Outpatient (CLI) | payer MEDICARE | END 2024-02-05 11:40 | disposition home or self-care (01) | LOC: ULT 11:39 | PROVIDERS: ATTEND Specialist | DX: E04.2 Nontoxic multinodular goiter (principal) | CPT/HCPCS: 76536 ==

== ENCOUNTER 2024-03-05 09:00 | Outpatient (CLI) | payer MEDICARE | END 2024-03-05 09:01 | disposition home or self-care (01) | LOC: BICMAMMO 09:00 | PROVIDERS: ATTEND Family Medicine | DX: M81.0 Age-related osteoporosis without current pathological fracture (principal); Z78.0 Asymptomatic menopausal state; M85.89 Other specified disorders of bone density and structure, multiple sites | CPT/HCPCS: 77080 ==

== ENCOUNTER 2024-03-11 07:56 | Outpatient (CLI) | payer MEDICARE | END 2024-03-11 07:57 | disposition home or self-care (01) | LOC: BICMAMMO 07:56 | PROVIDERS: ATTEND Family Medicine | DX: Z12.31 Encounter for screening mammogram for malignant neoplasm of breast (principal); Z80.3 Family history of malignant neoplasm of breast; Z91.89 Other specified personal risk factors, not elsewhere classified | CPT/HCPCS: 77063; 77067 ==

== ENCOUNTER 2025-02-18 08:44 | Outpatient (CLI) | payer MEDICARE | END 2025-02-18 08:45 | disposition home or self-care (01) | LOC: SCSULT 08:44 | PROVIDERS: ATTEND Specialist | DX: E04.2 Nontoxic multinodular goiter (principal) | CPT/HCPCS: 76536 ==